=== PATIENT | female | born 2000 | race Caucasian/White ===

== ENCOUNTER → 2019-03-31 | Outpatient (REF) ==
--- NOTE | 2019-03-31 16:29 | Diagnostic Imaging Report ---
INDICATION: Mandibular pain. FINDINGS: The mandible appears to be intact. There is no fracture. The condyles are well-aligned. IMPRESSION: No evidence of mandibular fracture. Dictated by: Dictated on workstation # [id number]
== END | disposition home or self-care (01) ==
LOC: OCC 09:36
PROVIDERS: ATTEND Nurse Practitioner Family
CPT/HCPCS: 70355